=== PATIENT | male | born 1975 | race Caucasian/White ===

== ENCOUNTER → 2018-08-12 03:59 | Emergency (ER) | payer OTHER, SELFPAY ==
--- NOTE | 2018-08-12 05:28 | CT_ITS ---
STUDY: CT ABDOMEN AND PELVIS WITHOUT CONTRAST REASON FOR EXAM: Male, 42 years old. Mid abdominal pain. RADIATION DOSAGE (If Supplied By Facility): CTDIvol = ( 6.45 ) mGy, DLP = ( 372.35 ) mGycm TECHNIQUE: Transaxial images were obtained from the dome of the diaphragm to the symphysis pubis without oral contrast, and without intravenous contrast. Sagittal and coronal images were reconstructed. Individualized dose optimization techniques were used for this CT. COMPARISON: None. FINDINGS: There is mild bilateral basilar dependent atelectasis. The visualized portions of the heart are within normal limits. Normal liver. Normal gallbladder and extrahepatic biliary system. Normal spleen. Normal pancreas. Normal bilateral adrenal glands. Normal right kidney. Normal left kidney. Normal visualized stomach. There is no evidence for dilated bowel, ascites or pneumoperitoneum. The small bowel has a grossly normal appearance. Stool is visible throughout the colon with scattered colonic diverticula. The appendix is visualized and appears normal. Normal abdominal aorta. There is venous distention of the inferior vena cava (IVC). Normal retroperitoneum. Normal urinary bladder. Normal visualized prostate gland. Normal abdominal wall. Normal osseous structures. CT/Abdomen/Pelvis without Cont IMPRESSION: No CT evidence of acute intra-abdominal disease. Electronically Signed: Iva Raza MD at 6:15 EDT , Service support ,
[2018-08-12 05:29] LABS: ALB/GLOB Ratio 1.1 RATIO (0.9-2.4); AST(SGOT) 18 U/L (15-37); Albumin, Serum 3.5 g/dL (3.2-5.0); BUN 15 mg/dL (7-18); BUN/Creat Ratio 15.5 RATIO (10-20); Calcium,Total 8.2 mg/dL (8.5-10.1); Creatinine, Serum 0.97 mg/dL (0.70-1.30); EST Glomerular Filtration Rate 89 mL/min (>60); Est Glom Filt Rate - Afr Amer 108 mL/min (>60); Globulin 3.3 g/dL (2.2-4.2); Glucose 96 mg/dL (74-106); Lipase 247 U/L (73-393); Protein, Total 6.8 g/dL (6.4-8.2)
[2018-08-12 05:30] LABS: Alanine Aminotransfer ALT/SGPT 26 U/L (16-61); Alkaline Phosphatase 78 U/L (45-117); Anion Gap 7 (5-15); Chloride 106 mmol/L (98-107); Potassium 3.5 mmol/L (3.5-5.1); Sodium Level 141 mmol/L (136-145)
[2018-08-12 05:35] LABS: Absolute Lymphocyte Count 0.97 X10^3/ul (0.83-4.51); Absolute Neutrophil Count 2.2 X10^3/uL (2.0-7.7); Basophil# 0.01 X10^3/uL; Basophil% 0.2 % (0-1); Eosinophil# 0.06 X10^3/uL; Eosinophils% 1.5 % (0-5); Hematocrit 43.8 % (40-54); Lymphocyte # 0.97 X10^3/ul (4.0); Lymphocyte % 24.2 % (19-41); Mean Corp Hgb Conc 36.5 g/gl (32-36); Mean Corpuscular Hgb 30.7 pg (27.0-32.0); Mean Corpuscular Volume 84.1 fL (80-94); Mean Platelet Vol. 10.3 fl (6.2-12.0); Monocyte# 0.75 X10^3/uL; Monocyte% 18.7 % (0-10); Neutrophil % 55.4 % (47-70); Platelet Count 135 K/mm3 (150-450); RBC Distribution Width CV 13.5 % (11.6-14.6); RBC Distribution Width SD 41.2 fl (35.1-43.9); Red Blood Count 5.21 M/mm3 (4.6-6.2)
[2018-08-12 05:36] LABS: POSITIVE COUNT NO; POSITIVE DIFFERENTIAL NO; POSITIVE MORPHOLOGY NO
--- NOTE | 2018-08-12 06:51 | ED.DEP ---
ED Disposition - Plan for ED Patient: Disposition: Home or Assisted Living Instructions: EPIGASTRIC PAIN (Uncertain cause) Prescriptions: Famotidine [Pepcid] 20 mg PO BID #28 tablet Referrals: Joseluis Johnson DO [Primary Care Provider] - 1 Week
--- NOTE | 2018-08-12 07:17 | ED.VISSUMM ---
- ER Visit Summary Date of Service: 08/12/18 Chief Complaint: Abdominal pain, nausea History of Present Illness: The patient is a 42 M who reports having flulike symptoms yesterday with body aches and nausea. He woke this morning with severe epigastric pain. He had a bowel movement but that did not improve his pain. While in route to the hospital pain seems to be improving. He did report he belched multiple times. Past medical history significant only for hernia repair in 2000. Physical Examination: Vital signs unremarkable. He is afebrile. Patient sitting upright in bed no acute distress. He is nontoxic appearing. Head and neck examination normal. Heart is regular rate and rhythm. Lung sounds are clear. Abdomen is soft and tender in the epigastric region only. He has active bowel sounds throughout. There is no guarding or rebound. Test Results: EKG is sinus at 67 with no acute ischemia. CBC and chemistry studies normal. LFTs normal. Lipase normal. Troponin negative. CT abdomen pelvis shows no acute disease. Emergency Department Course and Treatment: Patient was given Toradol, Zofran, and IV fluids. This time his pain is improved. Test results were discussed with patient and at bedside. He will be written for Pepcid to see if that improves his symptoms. If he has worsening pain, recurrent vomiting, or fever he is to return for repeat evaluation. Treatment Plan: [] Disposition: Discharge Impression: Epigastric pain, unclear etiology This note was generated with [employer] dictation software. It may contain incorrect words, spelling, and punctuation that were not noted in review of the chart prior to signing ED Disposition - Plan for ED Patient: Disposition: Home or Assisted Living Instructions: EPIGASTRIC PAIN (Uncertain cause) Prescriptions: Famotidine [Pepcid] 20 mg PO BID #28 tab Prescription Printed Referrals: Joseluis Johnson DO [Primary Care Provider] - 1 Week
--- NOTE | 2018-08-12 08:13 | EKG12_ITS ---
Test Reason : Blood Pressure : / mmHG Vent. Rate : 067 BPM Atrial Rate : 067 BPM P-R Int : 174 ms QRS Dur : 102 ms QT Int : 400 ms P-R-T Axes : 053 050 034 degrees QTc Int : 422 ms Normal sinus rhythm Normal ECG Confirmed by CASSI RUCKER ([id number]), manager editorial MEAGHAN JOSE ([id number]) on 08/20/2018 8:38:29 AM Referred By: EREN Confirmed By:CASSI RUCKER
== END | disposition home or self-care (01) ==
PROVIDERS: Emergency Provider Emergency Medicine; Family Provider Family Medicine; PCP Family Medicine
DX: R10.13 Epigastric pain (principal); R11.0 Nausea
CPT/HCPCS: 74176; 80053; 83690; 84484; 85025; 93005; 96361; 96374; 99284; J7030; A4216; J2405